=== PATIENT | male | born 2000 | race Caucasian/White ===

== ENCOUNTER 2019-12-19 14:19 | Emergency (ER) | payer OTHER, SELFPAY ==
[2019-12-19 14:30] VITALS: BP 147/117; PULSE 120; RESP 18; TEMP 36.8; O2SAT 97
[2019-12-19 15:49] VITALS: BP 137/93; PULSE 110; RESP 20; O2SAT 98
--- NOTE | 2019-12-19 16:22 | ED.GENADULT ---
HPI - General Adult General Chief complaint: Skin/Abscess/Foreign Body Stated complaint: sore throat rash full of canker sores Time Seen by Provider: 12/19/19 15:50 Source: patient Mode of arrival: ambulatory Limitations: no limitations History of Present Illness HPI narrative: Khadar is a 19-year-old male patient. He states that he has had rashes on his mouth hands and legs. This has been present for the past 3 days some of them have mild blisters. No fever. He does have is mild sore throat. A strep test is negative. His problem appears to be hand foot mouth disease. He has no difficulty swallowing. No nausea vomiting or diarrhea. No cough or fever. MD complaint: rashes on mouth hands and feet Onset (ago): day(s) ( Three days) Location: mouth, upper extremity and lower extremity Severity: moderate Pain Consistency: other ( no pain) Relieving factors: none Exacerbating factors: none Associated symptoms: other ( see HPI narrative) Treatments prior to arrival: none Related Data Allergies Allergy/AdvReac Type Severity Reaction Status Date / Time No Known Allergies Allergy Verified 12/19/19 14:39 Review of Systems Review of Systems: All systems reviewed & are unremarkable except as noted in HPI and below Constitutional: Constitutional: Reports as per HPI, Reports no additional constitutional complaints, Denies chills and Denies fever(s) Eyes: Eyes: Reports as per HPI, Reports no additional eye complaints and Denies change in vision ENT: Reports system reviewed and no additional complaints, except as documented, Denies dysphagia, Denies dizziness, Denies nasal congestion and Reports sore throat Cardiovascular: Cardiovascular: Reports as per HPI, Reports no additional cardiovascular complaints, Denies chest pain and Denies radiating jaw, neck or arm pain Respiratory: Respiratory: Reports as per HPI, Reports no additional respiratory complaints, Denies cough and Denies dyspnea Gastrointestinal: Gastrointestinal: Reports as per HPI, Reports no additional gastrointestinal complaints, Denies abdominal pain, Denies diarrhea, Denies nausea and Denies vomiting Genitourinary: Genitourinary: Reports no additional male genitourinary complaints, Denies hematuria and Denies dysuria Musculoskeletal: Musculoskeletal: Reports no additional musculoskeletal complaints, Reports as per HPI and Denies back pain Integumentary/Breasts: Skin/Breast: Reports system reviewed and no additional complaints, except as docu, Reports rash and Denies skin ulcer Neurologic: Reports system reviewed and no additional complaints, except as documented, Reports as per HPI, Denies vertigo, Denies dizziness, Denies syncope, Denies focal weakness and Denies numbness Psychiatric: Psychiatric: Reports no additional psychiatric complaints, Reports as per HPI and Denies anxiety Endocrine: Endocrine: Reports no additional endocrine complaints, Reports as per HPI and Denies polydipsia Hematologic/Lymphatic: Hematologic/Lymphatic: Reports no additional hematologic/lymphatic complaints, Reports as per HPI, Denies easy bleeding and Denies easy bruising PMFSH Past Medical History Medical History (Updated 12/19/19 @ 16:30 by Navarro Altman MD) No significant medical problems Surgical History Surgical History (Updated 12/19/19 @ 16:27 by Navarro Altman MD) No significant past surgical history Social History Social History (Updated 12/19/19 @ 16:27 by Navarro Altman MD) Smoking status: Never smoker Alcohol intake: never Substance use: never Gender identity (if verbalized by the patient): Male Exam Const: General: no acute distress ( mild distress. No pain.) and alert; No diaphoretic Nutritional Appearance: thin Orientation/consciousness: patient oriented x3 Limitations: no limitations HENMT: Ears: TM's normal bilaterally and EAC's normal General nose exam: Normal nares present Other: Mild pharyngeal erythema. Rapid strep i
== END 2019-12-19 16:35 | disposition home or self-care (01) ==
PROVIDERS: Emergency Provider Surgery
DX: B08.4 Enteroviral vesicular stomatitis with exanthem (principal)
CPT/HCPCS: 87081; 87880; 99283

== ENCOUNTER 2021-05-15 16:34 | Emergency (ER) | payer OTHER, SELFPAY ==
[2021-05-15 16:40] VITALS: BP 143/94; PULSE 120; RESP 20; TEMP 36.9; O2SAT 97
[2021-05-15] MEDS: SODIUM CHLORIDE 0.9% IV 1,000 ML 999 ML IV CONT (17:28)
--- NOTE | 2021-05-15 17:28 | ED.WOUNDLAC ---
HPI - Wound/Laceration General Chief Complaint: Wound/Laceration Stated Complaint: spider bite Time Seen by Provider: 05/15/21 16:42 Source: patient and RN notes reviewed Mode of arrival: ambulatory Limitations: no limitations History of Present Illness Onset (ago): day(s) (2) Location: chest Place: home Context: accidental Associated symptoms: pain Related Data Allergies Allergy/AdvReac Type Severity Reaction Status Date / Time No Known Allergies Allergy Verified 12/19/19 14:39 Review of Systems Review of Systems: All systems reviewed & are unremarkable except as noted in HPI and below Constitutional: Constitutional: Reports as per HPI and Reports no additional constitutional complaints Eyes: Eyes: Reports as per HPI and Reports no additional eye complaints ENT: Reports system reviewed and no additional complaints, except as documented and Reports as per HPI Cardiovascular: Cardiovascular: Reports as per HPI and Reports no additional cardiovascular complaints Respiratory: Respiratory: Reports as per HPI and Reports no additional respiratory complaints Gastrointestinal: Gastrointestinal: Reports as per HPI and Reports no additional gastrointestinal complaints Genitourinary: Genitourinary: Reports no additional male genitourinary complaints and Reports as per HPI Musculoskeletal: Musculoskeletal: Reports no additional musculoskeletal complaints and Reports as per HPI Integumentary/Breasts: Skin/Breast: Reports system reviewed and no additional complaints, except as docu and Reports as per HPI Neurologic: Reports system reviewed and no additional complaints, except as documented and Reports as per HPI Psychiatric: Psychiatric: Reports no additional psychiatric complaints and Reports as per HPI Endocrine: Endocrine: Reports no additional endocrine complaints and Reports as per HPI Hematologic/Lymphatic: Hematologic/Lymphatic: Reports no additional hematologic/lymphatic complaints and Reports as per HPI Allergic/Immunologic: Allergic/Immunologic: Reports no additional allergic/immunologic complaints and Reports as per HPI [facility] Past Medical History Medical History Insect bite (nonvenomous) of breast, right breast, initial encounter No significant medical problems Surgical History Surgical History No significant past surgical history Social History Social History Smoking status: Never smoker Alcohol intake: never Substance use: never Gender identity (if verbalized by the patient): Male Exam Const: General: healthy appearing and no acute distress Nutritional Appearance: well nourished Orientation/consciousness: patient oriented x3 HENMT: Head: normal to inspection Ears: external ears normal and TM's normal bilaterally General nose exam: Normal external nose present and Normal nares present Mouth: Yes moist mucous membranes Throat: posterior oropharynx normal Eyes: Conjunctivae: conjunctivae normal Pupils: Equal, round and reactive pupils present EOM: EOMs intact bilaterally Neck: Neck: normal visual inspection and no lymphadenopathy Chest: Chest palpation & inspection: abnormal inspection of the chest Other: right lateral pectoral chest 5 cm diameter flat, firm erythematous lesion with a dark apex. no pus seen. Pt was afebrile. Resp: Effort & Inspection: normal respiratory effort Auscultation: clear to auscultation bilaterally Cardio: Rate: regular rate Rhythm: regular rhythm GI: GI Palp: Yes Soft to palpation Percussion: Yes normal to percussion Auscultation: normal bowel sounds Back/Spine/Pelvis: Back: no CVA tenderness Skin: General skin exam: normal color Rashes: no rashes Neuro: General: patient oriented x3, moves all extremities and no focal motor deficits Extrem: General: normal to inspection and no peda
[2021-05-15] MEDS: ACETAMINOPHEN 325 MG TABLET 650 MG PO (17:30)
--- NOTE | 2021-05-15 18:04 | ECG_ITS ---
Measurements Intervals [place] Rate: 103 P: 54 PA: 152 QRS: 24 QRSD: 94 T: 29 QT: 307 QTc: 403 Interpretive Statements SINUS TACHYCARDIA ST ELEVATION IN ANTERIOR LEADS- PROBABLY EARLY REPOLARIZATION ABNORMALITY NONSPECIFIC T-WAVE ABNORMALITY- INFERIOR LEADS BORDERLINE ECG Electronically Signed On 05-16-2021 12:28:18 CDT by César Latham D.O.
[2021-05-15 18:34] VITALS: BP 139/82; PULSE 105; RESP 20; TEMP 37.1; O2SAT 98
== END 2021-05-15 18:41 | disposition home or self-care (01) ==
PROVIDERS: Emergency Provider Emergency Medicine
DX: S20.161A Insect bite (nonvenomous) of breast, right breast, initial encounter (principal); W57.XXXA Bitten or stung by nonvenomous insect and other nonvenomous arthropods, initial encounter
CPT/HCPCS: 93005; 96365; 99283; 99284; A9270; J0696; J7030